=== PATIENT | male | born 1945 | race Caucasian/White ===

== ENCOUNTER 2017-11-24 11:38 | Emergency (ER) | payer OTHER ==
[~2017-11-24] VITALS: Ht 177.8 cm; Wt 70.5 kg
[2017-11-24 11:51] VITALS: Ht 177.8 cm; Wt 70.5 kg
[2017-11-24] MEDS ORDERED: NAPROXEN250 MG PO (11:53)
[2017-11-24] MEDS ORDERED: ORAPRED ODT10 MG/TAB PO (11:53)
[2017-11-24 12:28] LABS: HEMATOCRIT 29.3 % (42.0-54.0); HEMOGLOBIN 9.9 g/dL (13.5-17.5); MCH 30.6 pg (26.0-34.0); MCHC 33.8 g/dL (31.0-37.0); MCV 90.4 fL (80.0-100.0); MEAN PLATELET VOLUME 8.7 fL (7.4-10.4); RBC 3.24 10x6/uL (4.20-6.10); RDW 18.2 % (11.5-14.5); WBC 2.3 10x3/uL (4.8-10.8)
[2017-11-24 12:31] LABS: PLATELET COUNT 126 10x3/uL (130-400)
[2017-11-24 12:39] LABS: ALBUMIN 3.4 g/dL (3.4-5.0); ALKALINE PHOSPHATASE 81 U/L (46-116); ALT (SGPT) 14 U/L (10-68); BILIRUBIN - TOTAL 2.16 mg/dL (0.2-1.3); CALC OSMOLALITY 275 mosm/kg (275-300); CALCIUM 8.5 mg/dL (8.5-10.1); CARBON DIOXIDE 27.1 mmol/L (21.0-32.0); CHLORIDE - SERUM 101 mmol/L (98-107); CREATININE - SERUM 1.2 mg/dL (0.6-1.3); GLUCOSE 134 mg/dL (74-106); POTASSIUM - SERUM 4.2 mmol/L (3.5-5.1); PROTEIN - SERUM 7.6 g/dL (6.4-8.2); SODIUM 136 mmol/L (136-145); UREA NITROGEN 17 mg/dL (7-18); eGFR NON AFRICAN AMERICAN 63 mL/min (90-120)
[2017-11-24 12:49] LABS: CKMB 0.6 U/L (0.0-3.6); CREATINE KINASE 26 UL (21-232); TROPONIN-I < 0.017 ng/mL (0.000-0.060)
[2017-11-24 13:13] LABS: LYMPHOCYTES 26 % (15-50); MONOCYTES 18 % (2-11); NEUTROPHILS 20 % (40-80)
[2017-11-24 13:14] LABS: ANISOCYTOSIS OCC; PLATELET ESTIMATE NORMAL
[2017-11-24 19:27] VITALS: BP 124/78
== END 2017-11-24 19:27 ==
LOC: D.ER 11:38
PROVIDERS: Family Medicine
DX: D61.818 Other pancytopenia (principal); R50.9 Fever, unspecified; J44.1 Chronic obstructive pulmonary disease with (acute) exacerbation; I95.9 Hypotension, unspecified; J18.9 Pneumonia, unspecified organism